=== PATIENT | male | born 1965 | race Caucasian/White ===

== ENCOUNTER 2016-10-26 16:27 | Observation (INO) | payer BC ==
[~2016-10-26] VITALS: Ht 180.3 cm; Wt 102.0 kg
--- NOTE | ~2016-10-26 | HP ---
History And Physical [facility] [id number] [place]. [address] NAME: CHRISTINE AVILA : 63 STATUS : ADM Kristin PAT#: [id number] AGE: 50 ADM/REG DATE : 10/26/16 MR#: [id number] REPORT SERV DATE: 10/27/16 DICTATED BY: JEANA ESTRADA DATE: 10/27/16 REPORT STATUS : Draft TRANSCRIBED BY: MODL DATE: 10/27/16 DATE OF ADMISSION: 10/26/2016 PRIMARY SUPERVISOR [employer]SEMBLY: Basim Bonilla M.D. CHIEF COMPLAINT: Upper back pain. HISTORY OF PRESENT ILLNESS: This is a 50-year-old male with history of coronary artery disease status post OR in September 2015 and stent to the RCA, who is compliant with his medications. Yesterday morning, he describes onset of upper back pain "like my heart attack" while driving to work. He describes the pain as "constant ache that would intensify", 8/10 at its worst. The pain persisted throughout the day, so he came to the emergency department at the urging of his 4:30 yesterday afternoon. He was given one dose of sublingual nitroglycerin which he states decreased the pain to its current level of 4/10. The pain has never fully dissipated. He states it "feels like a pulled muscle." The patient has history of OR last September with stent to the RCA. At that time, he also had upper back pain, but going into both the shoulders into the chest. He states no recent exertional back or chest pain. He denies any recent increased shortness of breath, lower extremity edema, palpitations, or presyncope. He is currently undergoing evaluation by Dr. Bhagat because of elevated white blood count. No recent fever, cough, or chills. He was successful in quitting smoking after his heart attack last year for about six weeks, but it is resumed. PAST MEDICAL HISTORY: 1. Coronary artery disease status post acute coronary syndrome in September 2015 with drug- eluting stent to the RCA, EF 40%. There was also a 50-60% LAD disease and 70-80% in the left circumflex. The patient had a nuclear stress test in May 2016 which was a low risk vasodilator study. Echocardiogram in October 2015 showed normal EF. 2. Tobacco abuse. 3. Hypothyroidism. 4. Hypertension. 5. Mixed hyperlipidemia. 6. Obesity. 7. Chronic back pain and multiple orthopedic surgeries. PAST SURGICAL HISTORY: 1. Lumbar surgery x5. 2. Bilateral knee arthroscopy. 3. Left foot surgery. 4. Left ulnar nerve surgery. 5. Left shoulder repair x7. 6. Left trigger finger. 7. Sinus surgery and nasal septal deviation. 8. Cholecystectomy. 9. Pilonidal cyst to the rectum x4. History And Physical [address] [address] NAME: CHRISTINE AVILA : 63 STATUS : ADM Kristin PAT#: [id number] AGE: 50 ADM/REG DATE : 10/26/16 MR#: [id number] REPORT SERV DATE: 10/27/16 DICTATED BY: JEANA ESTRADA DATE: 10/27/16 REPORT STATUS : Draft TRANSCRIBED BY: LUIZA DATE: 10/27/16 HOME MEDICATIONS: 1. Aspirin 81 mg daily. 2. Lipitor 40 mg daily. 3. Coreg 6.25 mg b.i.d. 4. Plavix 75 mg daily. 5. Duragesic 50 mcg/hour patch every 72 hours. 6. Neurontin 300 mg q.i.d. 7. Levothyroxine 50 mcg daily. 8. Lisinopril 10 mg daily. 9. Multivitamin daily. 10.Percocet 10/325 mg q.i.d. p.r.n. pain. 11.Zanaflex 8 mg t.i.d. ALLERGIES: TO BRILINTA CAUSES SHORTNESS OF BREATH, AND CLINDAMYCIN CAUSES HIS BLOOD PRESSURE TO DROP. SOCIAL HISTORY: The patient is , at bedside. He works as an deli worker. He is currently smoking one pack per day and has been doing so for 30+ years. Denies alcohol or illicit drug use. FAMILY HISTORY: Father had an OR in his 40s, followed by open heart surgery twice. He is alive at age 83. REVIEW OF SYSTEMS: Negative except as indicated above. PHYSICAL EXAMINATION: VITAL SIGNS: Blood pressure 118/71, heart rate 74, temperature 98.1, pulse oximetry 95% room air, and BMI 31.3. GENERAL: Well developed, well nourished, in no acute distress. HEENT: Anicteric. Normal EOM. Head is normocephalic. PERRLA. No xanthelasma. NECK: Supple. No JVD. Carotids normal without bruits. LUNGS: Clear to auscultation bilaterally anterior and posterior. Respirations even and unlabored. CARDIAC: S1, S2 regular rate and rhythm. No murmurs, rubs, or gallops. No chest wall tenderness. ABDOMEN: Normal bowel sounds. Soft and nontender to palpation. No masses or organomegaly. EXTREMITIES: No peripheral edema. DP/PT and radial pulses palpable bilaterally. No clubbing or cyanosis. SKIN: Warm and dry. Normal turgor. No pallor or cyanosis. MUSCULOSKELETAL: Moving all extremities x4. Normal muscle strength. NEURO/PSYCH: Alert and oriented with appropriate affect. LABORATORY DATA: White blood count 14.0, hemoglobin 15.3, and hematocrit 44.0. Sodium 139, potassium 3.5, BUN 9, and creatinine 1.0. Troponin less than 0.02 x3. History And Physical [address] [address] NAME: CHRISTINE AVILA : 63 STATUS : ADM Kristin PAT#: [id number] AGE: 50 ADM/REG DATE : 10/26/16 MR#: [id number] REPORT SERV DATE: 10/27/16 DICTATED BY: JEANA ESTRADA DATE: 10/27/16 REPORT STATUS : Draft TRANSCRIBED BY: LUIZA DATE: 10/27/16 Chest x-ray shows no acute cardiopulmonary processes. EKGs interpreted by myself indicate normal sinus rhythm on three separate EKGs with no ischemic changes. ASSESSMENT AND PLAN: 1. Atypical chest pain in this 50-year-old male with history of coronary artery disease. He has been observed overnight in the Chest Pain Observation Unit and is negative for acute coronary syndrome. His pain is constant and described as "feeling like muscle tension." He has had no recent exertional chest pains. At this time, I feel like it is reasonable to discharge the patient home. We will arrange a close followup with his western tack assembly line worker, and I will also provide a prescription for nitroglycerin and I have reinforced the use of this medication with the patient and his . If his chest or back pains is not relieved by three nitroglycerin five minutes apart, he is going to come back to the emergency department. The patient will be seen by the rounding western tack assembly line worker today. We will keep him n.p.o. in the event that he recommend stress testing before discharge. 2. Coronary artery disease with history of stent to the right coronary artery, and no recent exertional chest pains. The patient is compliant with his medications, this includes aspirin, beta sulaiman, statin, and JOLIE inhibitor. His blood pressure is mildly elevated here, but he states control at home. Consider Rx of low-dose amlodipine. 3. Tobacco abuse. I have counseled the patient on complete cessation, provided some resources such as [employer]. We will also provide a prescription for Chantix on discharge and I have educated the patient on its use. 4. Hypertension, blood pressure is between 110s to 160 while he is here. Consider adding low-dose amlodipine on discharge for further blood pressure control and antianginal properties. 5. Mixed hyperlipidemia. He is compliant with statin therapy. We will continue. ARLENE/LUIZA Jeana Estrada NP / [id number] CC: Miracle Ramos, MSN, BEVELER-BC Mami Hansen M.D. Basim Bonilla M.D.
[~2016-10-26 16:27] MED LIST: ASAB PO; COREG3 PO; DURA100 TOP; LEVOXYL50 MCG PO; LIPITOR40 PO; NEUR300 PO; PCET; PCET PO; PRIN2.5 PO; ZANAFLEX 4 MG TA4 MG PO
[2016-10-26 17:05] LABS: BASOPHILS 0.5 %; BASOPHILS ABSOLUTE 0.07 10/3/uL (0.0-0.16); EOSINOPHILS 1.8 %; EOSINOPHILS ABSOLUTE 0.25 10/3/uL (0.0-0.53); ER CBC TAT 0 Hrs 08 Mins; HEMOGLOBIN 15.3 g/dL (13.6-17.8); IMMATURE GRANULOCYTES 0.2 %; IMMATURE GRANULOCYTES ABSOLUTE 0.03 10/3/uL (0.0-0.11); LYMPHOCYTES 19.4 %; LYMPHOCYTES ABSOLUTE 2.72 10/3/uL (0.67-4.30); MANUAL DIFF NO %; MEAN CORPUS HGB CONC 34.8 g/dL (32.0-36.0); MEAN CORPUSCULAR HEMOGLOB 33.6 pg (26.0-34.0); MEAN CORPUSCULAR VOLUME 96.7 fL (80-100); MEAN PLATELET VOLUME 9.4 fL (9.2-13.0); MONOCYTES 7.3 %; MONOCYTES ABSOLUTE 1.02 10/3/uL (0.21-1.20); NEUTROPHILS 70.8 %; NEUTROPHILS ABSOLUTE 9.91 10/3/uL (2.02-8.40); PLATELET COUNT 273 10/3/uL (150-400); RBC DISTRIBUTION WIDTH 13.3 % (12.0-16.0); RED CELL COUNT 4.55 10/6/uL (4.7-6.1)
[2016-10-26 17:13] LABS: INTERNATIONAL NORMAL RATI 0.9 UNITS (-); PARTIAL THROMBO TIME 29.4 SEC (22.5-37.2); PROTIME (NOT ORD) 12.4 SEC (12.0-14.5)
[2016-10-26 17:22] LABS: BUN (BLOOD UREA NITROGEN) 9 MG/DL (6-23); CALCIUM, SERUM 9.4 MG/DL (8.5-10.4); CHEST PAIN PROFILE TAT 0 Hrs 25 Mins; CHLORIDE, SERUM 104 MMOL/L (96-112); CO2 (CARBON DIOXIDE) 30 MMOL/L (24-34); CREATININE 1.09 MG/DL (0.70-1.30); GFR AFRICAN AMERICAN 91 ML/MIN (>=60); GFR NON AFRICAN AMERICAN 78 ML/MIN (>=60); POTASSIUM, SERUM 3.5 MMOL/L (3.5-5.3); SODIUM, SERUM 139 MMOL/L (135-148); TROPONIN I <0.02 NG/ML (<0.05)
[2016-10-26 17:24] LABS: GLUCOSE, SERUM 94 MG/DL (60-99)
[2016-10-26] MEDS ORDERED: DURA50 TOP (18:27)
[2016-10-26] MEDS ORDERED: PERCOCET 10/3251 TAB PO (18:27)
[2016-10-26] MEDS ORDERED: ZANAFLEX 4 MG TA4 MG PO (18:28)
[2016-10-26] MEDS ORDERED: COREG6 PO (18:29)
[2016-10-26] MEDS ORDERED: NEUR300 PO (18:29)
[2016-10-26] MEDS ORDERED: HALF81 PO (18:29)
[2016-10-26] MEDS ORDERED: LEVOTHYROXIN50 MCG PO (18:29)
[2016-10-26] MEDS ORDERED: LIPITOR40 PO (18:30)
[2016-10-26] MEDS ORDERED: PLAVIX PO (18:30)
[2016-10-26] MEDS ORDERED: PRIN10 PO (18:30)
[2016-10-26] MEDS ORDERED: MULTIVITAMI1 PO (18:30)
[2016-10-27] MEDS ORDERED: NITROQUICK0.4 MG SL (09:49)
[2016-10-27] MEDS ORDERED: CHANTIX0.5 (09:50)
[2016-10-27] MEDS ORDERED: NORV5 PO (09:50)
== END 2016-10-27 10:00 | disposition home or self-care (01) ==
LOC: ER 16:27 → CDU1 19:45
PROVIDERS: Emergency Medicine
DX: R07.89 Other chest pain (principal); I25.10 Atherosclerotic heart disease of native coronary artery without angina pectoris; I10 Essential (primary) hypertension; E78.2 Mixed hyperlipidemia; F17.210 Nicotine dependence, cigarettes, uncomplicated; I25.2 Old myocardial infarction; E03.9 Hypothyroidism, unspecified; G89.29 Other chronic pain; Z90.49 Acquired absence of other specified parts of digestive tract; Z98.890 Other specified postprocedural states; Z79.82 Long term (current) use of aspirin; Z95.5 Presence of coronary angioplasty implant and graft; Z79.899 Other long term (current) drug therapy; Z88.1 Allergy status to other antibiotic agents
CPT/HCPCS: 71020; 80048; 83735; 84484; 85025; 85610; 85730; 93005; 99285; A9270-GY; G0378